=== PATIENT | male | born 1995 | race Caucasian/White ===

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

== ENCOUNTER 2019-04-08 13:35 | Emergency (ER) | payer SELFPAY ==
[~2019-04-08] VITALS: Ht 170.2 cm; Wt 68.0 kg
[~2019-04-08 13:35] MED LIST: DOCU-131 PO; OXYC-302 PO
[2019-04-08 13:48] VITALS: BP 125/76
[2019-04-08] MEDS ORDERED: HYDROcodone/APAP 5/325 TABLET PO ONE (14:30)
[2019-04-08] MEDS ORDERED: HYDROcodone/APAP 5/325 TABLET ONE (14:37)
--- NOTE | 2019-04-08 15:05 | NUR ---
Received report from LOVE Jennings. All questions answered. Assuming care of pt at this time.
--- NOTE | 2019-04-08 15:06 | NUR ---
PT SPLINTED BY EDT, CMS INTACT. REPORT GIVEN TO LOVE MARISCAL.
--- NOTE | 2019-04-08 15:35 | NUR ---
Patient given discharge instructions and they have confirmed that they understand the instructions. Patient ambulatory with steady gait. Pt left with d/c paperwork, Rx, and all personal belongings.
== END 2019-04-08 15:37 | disposition home or self-care (01) ==
LOC: ED 15:30
DX: S92.354A Nondisplaced fracture of fifth metatarsal bone, right foot, initial encounter for closed fracture (principal); W10.8XXA Fall (on) (from) other stairs and steps, initial encounter; Y93.51 Activity, roller skating (inline) and skateboarding; Y92.488 Other paved roadways as the place of occurrence of the external cause; Y99.8 Other external cause status
CPT/HCPCS: 29515; 99284